=== PATIENT | female | born 1975 | race Two or more races ===

== ENCOUNTER 2017-02-07 16:00 | Emergency (ER) | payer MEDICAID, OTHER ==
[~2017-02-07] VITALS: Ht 167.6 cm; Wt 74.8 kg
[2017-02-07 16:03] VITALS: BP 133/68
== END 2017-02-07 22:15 | disposition left against medical advice (07) ==
LOC: EDBD 16:00 → ER 16:00
DX: R07.9 Chest pain, unspecified (principal); M25.512 Pain in left shoulder; Z53.21 Procedure and treatment not carried out due to patient leaving prior to being seen by health care provider; V73.5XXA Driver of bus injured in collision with car, pick-up truck or van in traffic accident, initial encounter; Y93.89 Activity, other specified; Y92.89 Other specified places as the place of occurrence of the external cause; Y99.8 Other external cause status
CPT/HCPCS: 71020; 93005

== ENCOUNTER 2021-10-20 18:53 | Emergency (ER) | payer MEDICAID ==
[~2021-10-20] VITALS: Ht 165.1 cm; Wt 79.4 kg
[2021-10-20 22:22] LABS: Basophils # (auto) 0 10 ^3/uL (0-0.2); Basophils % (auto) 0.5 % (0.0-2.0); Eosinophils # (auto) 0.1 10 ^3/uL (0-0.8); Eosinophils % (auto) 0.9 % (0.0-7.0); Hematocrit 41.9 % (36.0-46.0); Lymphocytes # (auto) 2.5 10 ^3/uL (0.4-5.4); Lymphocytes % (auto) 30.6 % (10.0-50.0); Mean Corpuscular Hemoglobin 30.1 pg (28.0-32.0); Mean Corpuscular Hgb Conc. 33.3 g/dL (32.0-36.0); Mean Corpuscular Volume 90.3 fL (80.0-100.0); Monocytes # (auto) 0.5 10 ^3/uL (0-1.3); Monocytes % (auto) 6.5 % (0.0-12.0); Neutrophils # (auto) 5.1 10 ^3/uL (1.6-8.6); Neutrophils % (auto) 61.5 % (37.0-80.0); Red Blood Cells 4.64 10^6/uL (4.0-5.20); Red Cell Distribution Width 13.1 % (11.8-14.3); White Blood Cell 8.2 10^3/uL (4.4-10.8)
[2021-10-20 22:39] LABS: Albumin 3.6 g/dL (3.4-5.0); BUN/Creatinine Ratio 11.9; Calcium 9.1 mg/dL (8.5-10.1); Potassium 3.7 mmol/L (3.5-5.1)
[2021-10-20 22:42] LABS: Bilirubin, Total 0.3 mg/dL (0.2-1.0); Total Protein 7.7 g/dL (6.4-8.2)
[2021-10-20 23:40] VITALS: BP 120/78
== END 2021-10-21 00:10 | disposition home or self-care (01) ==
LOC: ER 18:53
DX: R07.9 Chest pain, unspecified (principal); I89.0 Lymphedema, not elsewhere classified; E78.5 Hyperlipidemia, unspecified; F17.210 Nicotine dependence, cigarettes, uncomplicated
CPT/HCPCS: 36415; 71045; 80053; 84484; 84702; 85025; 93005

== ENCOUNTER 2023-04-02 17:34 | Inpatient (IN) | payer MEDICAID ==
[~2023-04-02] VITALS: Ht 165.1 cm; Wt 97.5 kg
[2023-04-02] MEDS ORDERED: ACETAMINOPHEN 325 MG TAB PO ONE (18:00)
[2023-04-02] MEDS: KETOROLAC TROMETH 30 MG/ML 1ML VIAL IV ONE ×2 (18:06→18:28)
[2023-04-02] MEDS: ONDANSETRON HCL 4 MG/2 ML VIAL IV ONE ×2 (18:07→18:28)
[2023-04-02 18:15] LABS: Basophils # (auto) 0 10 ^3/uL (0-0.2); Basophils % (auto) 0.5 % (0.0-2.0); Eosinophils # (auto) 0.1 10 ^3/uL (0-0.8); Eosinophils % (auto) 0.7 % (0.0-7.0); Hemoglobin 15.7 g/dL (12.2-16.2); Lymphocytes # (auto) 2.8 10 ^3/uL (0.4-5.4); Lymphocytes % (auto) 31.5 % (10.0-50.0); Mean Corpuscular Hemoglobin 31.5 pg (28.0-32.0); Mean Corpuscular Volume 92.4 fL (80.0-100.0); Monocytes # (auto) 0.6 10 ^3/uL (0-1.3); Monocytes % (auto) 6.9 % (0.0-12.0); Neutrophils # (auto) 5.3 10 ^3/uL (1.6-8.6); Neutrophils % (auto) 60.4 % (37.0-80.0); Nucleated Red Blood Cells % 0.2 %; Red Blood Cells 4.98 10^6/uL (4.0-5.20); Red Cell Distribution Width 12.8 % (11.8-14.3); White Blood Cell 8.8 10^3/uL (4.4-10.8)
[2023-04-02 18:27] LABS: Alanine Aminotransferase 50 U/L (7-40); Alkaline Phosphatase 151 U/L (46-116); Anion Gap 7 (5-15); Aspartate Aminotransferase 38 U/L (13-40); BUN/Creatinine Ratio 15.5 (10.0-20.0); Bilirubin, Total 0.3 mg/dL (0.2-1.0); Blood Urea Nitrogen 16 mg/dL (9-23); Calcium 9.4 mg/dL (8.7-10.4); Carbon Dioxide 25 mmol/L (20-30); Chloride 104 mmol/L (98-107); Glucose 99 mg/dL (74-106); Potassium 4.2 mmol/L (3.5-5.1); Sodium 136 mmol/L (136-145); Total Protein 7.9 g/dL (5.7-8.2)
[2023-04-02 18:43] LABS: Urine WBC None Seen /hpf (0 - 5)
[2023-04-02 19:00] LABS: Urine Bacteria MANY /hpf (None Seen); Urine Blood Negative /uL (Negative); Urine Clarity Clear (Clear); Urine Hyaline Cast FEW /lpf (0 - 2); Urine Protein, UAD Negative (Negative); Urine Specific Gravity 1.018 (1.001-1.035); Urine Urobilinogen Normal (Negative); Urine pH 6.5 (5.0-8.0)
[2023-04-02 19:03] LABS: Urine Color STRAW (Yellow)
[2023-04-02] MEDS ORDERED: ONDANSETRON HCL 4 MG/2 ML VIAL IV ONE (19:45)
[2023-04-02] MEDS ORDERED: MORPHINE SULFATE 4 MG/ML SYR/VIAL IV ONE (19:45)
[2023-04-02] MEDS ORDERED: SODIUM CHLORIDE 0.9% 1,000 ML IV ONE (21:45)
[2023-04-02] MEDS ORDERED: IOHEXOL 300 MG/ML 100ML BOTTLE IJ ONE (22:29)
[2023-04-02] MEDS ORDERED: PIPERACILLIN-TAZOB 3.375GM 100 ML IV ONE (23:00)
[2023-04-02] MEDS ORDERED: ONDANSETRON HCL 4 MG/2 ML VIAL IV PRN (23:15)
[2023-04-02] MEDS ORDERED: HYDROcodone-ACET 5/325MG TAB PO PRN (23:30)
[2023-04-03] VITALS (8 sets, daily range): BP systolic 94–119; BP diastolic 47–74; PULSE 71–80; RESP 16–18; TEMP 97.8–98.8; O2SAT 94–98
[2023-04-03 00:11] LABS: INR 0.97 (0.9-1.15); Partial Thromboplastin Time 30.2 SEC (24.5-34.5); Prothrombin Time 10.2 sec (9.3-11.8)
[2023-04-03] MEDS: D5W/SOD CHL 0.45% 1,000 ML IV SCH ×3 (00:33→19:15)
[2023-04-03] MEDS: MORPHINE SULFATE INJ 2 MG/ml SYRG IV PRN ×2 (02:51→15:03)
[2023-04-03] MEDS: PIPERACILLIN-TAZOB 3.375GM 100 ML IV SCH ×3 (05:35→22:06)
[2023-04-03 07:38] LABS: Alanine Aminotransferase 103 U/L (7-40); Alkaline Phosphatase 134 U/L (46-116); Anion Gap 8 (5-15); Aspartate Aminotransferase 189 U/L (13-40); BUN/Creatinine Ratio 13.6 (10.0-20.0); Blood Urea Nitrogen 9 mg/dL (9-23); Calcium 8.7 mg/dL (8.5-10.1); Carbon Dioxide 23 mmol/L (20-30); Chloride 107 mmol/L (98-107); Glucose 92 mg/dL (74-106); Potassium 3.6 mmol/L (3.5-5.1); Sodium 138 mmol/L (136-145)
[2023-04-03 07:40] LABS: Albumin 3.9 g/dL (3.2-4.8); Bilirubin, Total 0.5 mg/dL (0.2-1.0); Total Protein 6.3 g/dL (5.7-8.2)
[2023-04-03] MEDS: ENOXAPARIN SOD 40 MG/0.4 ML SYRINGE SC SCH (12:09)
[2023-04-03] MEDS: ACETAMINOPHEN 325 MG TAB PO PRN (20:16)
[2023-04-04] VITALS (7 sets, daily range): BP systolic 99–128; BP diastolic 52–85; PULSE 70–81; RESP 16–18; TEMP 97.6–98.5; O2SAT 95–97
[2023-04-04] MEDS: D5W/SOD CHL 0.45% 1,000 ML IV SCH ×2 (04:31→15:45)
[2023-04-04] MEDS: PIPERACILLIN-TAZOB 3.375GM 100 ML IV SCH ×3 (05:17→21:43)
[2023-04-04 06:41] LABS: Basophils # (auto) 0 10 ^3/uL (0-0.2); Basophils % (auto) 0.4 % (0.0-2.0); Eosinophils # (auto) 0.1 10 ^3/uL (0-0.8); Hematocrit 41.3 % (36.0-46.0); Lymphocytes % (auto) 37.7 % (10.0-50.0); Mean Corpuscular Hemoglobin 31.3 pg (28.0-32.0); Mean Corpuscular Hgb Conc. 33.8 g/dL (32.0-36.0); Mean Corpuscular Volume 92.7 fL (80.0-100.0); Monocytes # (auto) 0.5 10 ^3/uL (0-1.3); Monocytes % (auto) 8.9 % (0.0-12.0); Neutrophils # (auto) 2.7 10 ^3/uL (1.6-8.6); Nucleated Red Blood Cells % 0.1 %; Red Blood Cells 4.46 10^6/uL (4.0-5.20); Red Cell Distribution Width 12.7 % (11.8-14.3); White Blood Cell 5.3 10^3/uL (4.4-10.8)
[2023-04-04] MEDS: ENOXAPARIN SOD 40 MG/0.4 ML SYRINGE SC SCH (08:56)
[2023-04-04] MEDS: MORPHINE SULFATE INJ 2 MG/ml SYRG IV PRN ×2 (08:57→19:51)
[2023-04-04 09:00] LABS: Alanine Aminotransferase 169 U/L (7-40); Alkaline Phosphatase 190 U/L (46-116); Anion Gap 6 (5-15); BUN/Creatinine Ratio 8.2 (10.0-20.0); Blood Urea Nitrogen 6 mg/dL (9-23); Calcium 8.8 mg/dL (8.7-10.4); Carbon Dioxide 23 mmol/L (20-30); Chloride 108 mmol/L (98-107); Glucose 83 mg/dL (74-106); Lipase 31 U/L (12-53); Potassium 3.8 mmol/L (3.5-5.1); Sodium 137 mmol/L (136-145)
[2023-04-04 09:02] LABS: Aspartate Aminotransferase 165 U/L (13-40); Bilirubin, Total 0.7 mg/dL (0.2-1.0)
[2023-04-04 09:03] LABS: Total Protein 6.6 g/dL (5.7-8.2)
[2023-04-04 11:27] LABS: Triglycerides 108 mg/dL (< 150)
[2023-04-04 11:28] LABS: LDL Cholesterol 121 mg/dL (< 100)
[2023-04-04 11:29] LABS: HDL Cholesterol 54 mg/dL (40-59)
[2023-04-04 11:30] LABS: Cholesterol 179 mg/dL (< 200)
[2023-04-05] MEDS: D5W/SOD CHL 0.45% 1,000 ML IV SCH (02:52)
[2023-04-05 05:00] VITALS: BP 95/71; PULSE 76; RESP 16; TEMP 98.5; O2SAT 96
[2023-04-05] MEDS: PIPERACILLIN-TAZOB 3.375GM 100 ML IV SCH ×3 (05:49→21:48)
[2023-04-05 07:06] LABS: Albumin 4.2 g/dL (3.2-4.8); Bilirubin, Direct 0.1 mg/dL (<0.3); Bilirubin, Total 0.3 mg/dL (0.2-1.0); Total Protein 6.9 g/dL (5.7-8.2)
[2023-04-05 08:00] VITALS: PULSE 81; RESP 18
[2023-04-05 09:38] LABS: Hepatitis B Surface Antigen Negative (Negative)
[2023-04-05 09:52] VITALS: BP 100/68; PULSE 81; RESP 16; TEMP 98.1; O2SAT 95
[2023-04-05 09:59] LABS: Hepatitis C Antibody Negative (Negative)
[2023-04-05] MEDS: ENOXAPARIN SOD 40 MG/0.4 ML SYRINGE SC SCH (11:27)
[2023-04-05] MEDS: ACETAMINOPHEN 325 MG TAB PO PRN (12:23)
[2023-04-05 12:36] LABS: INR 0.94 (0.9-1.15); Prothrombin Time 9.9 sec (9.3-11.8)
[2023-04-05 13:07] VITALS: BP 111/69; PULSE 80; RESP 19; TEMP 98.5; O2SAT 95
[2023-04-05] MEDS: MORPHINE SULFATE INJ 2 MG/ml SYRG IV PRN (21:48)
[2023-04-05 22:00] VITALS: BP 132/94; PULSE 90; RESP 16; TEMP 97.7; O2SAT 95
[2023-04-06] VITALS (8 sets, daily range): BP systolic 101–120; BP diastolic 46–80; PULSE 65–97; RESP 16–20; TEMP 97.2–98; O2SAT 90–100
[2023-04-06] MEDS: MORPHINE SULFATE INJ 2 MG/ml SYRG IV PRN (04:34)
[2023-04-06] MEDS: PIPERACILLIN-TAZOB 3.375GM 100 ML IV SCH ×3 (05:10→23:37)
[2023-04-06 07:48] LABS: Albumin 4.2 g/dL (3.2-4.8); Bilirubin, Direct 0.1 mg/dL (<0.3); Bilirubin, Total 0.4 mg/dL (0.2-1.0); Total Protein 7.1 g/dL (5.7-8.2)
[2023-04-06] MEDS ORDERED: BUPIVACAINE 0.5% P/F INJ 10 ML VIAL ONE ×2 (08:23→08:45)
[2023-04-06] MEDS ORDERED: LIDOCAINE W/ EPINEPHRINE 2% INJ 20ML VIAL ONE (08:24)
[2023-04-06] MEDS ORDERED: fentaNYL CITRATE 100 MCG/2 ML VL ONE (08:57)
[2023-04-06] MEDS ORDERED: LIDOCAINE HCL 100 MG/5ML (2%) SYRG INJ IV ONE (08:57)
[2023-04-06] MEDS ORDERED: PROPOFOL 10 MG/ML 20 ML IV ONE (08:57)
[2023-04-06] MEDS ORDERED: KETOROLAC TROMETH 30 MG/ML 1ML VIAL ONE (08:57)
[2023-04-06] MEDS ORDERED: DexAMETHasone SOD PHOS 10MG/1ML VIAL INJ ONE (08:57)
[2023-04-06] MEDS ORDERED: ONDANSETRON HCL 4 MG/2 ML VIAL ONE (08:57)
[2023-04-06] MEDS ORDERED: MIDAZOLAM HCL 2MG/2ML 2ml VIAL (1mg/ml) ONE (08:57)
[2023-04-06] MEDS ORDERED: GLYCOPYRROLATE 0.2 MG/ML 1ML VIAL ONE (08:57)
[2023-04-06] MEDS ORDERED: HYDROmorphone HCL 2 MG/ML VL/or syr ONE (08:57)
[2023-04-06] MEDS ORDERED: ROCURONIUM 10MG/ML 10ML VIAL IV ONE (09:25)
[2023-04-06] MEDS ORDERED: ePHEDrine SULFATE 50 MG/ML AMP ONE (09:25)
[2023-04-06] MEDS ORDERED: SUGAMMADEX 200mg/2ml Vial (100MG/ML) IV ONE ×2 (09:25→09:59)
[2023-04-06] MEDS: ENOXAPARIN SOD 40 MG/0.4 ML SYRINGE SC SCH (10:00)
[2023-04-06] MEDS ORDERED: HYDROmorphone HCL 2 MG/ML VL/or syr IV PRN (10:30)
[2023-04-06] MEDS ORDERED: ONDANSETRON HCL 4 MG/2 ML VIAL IV PRN (10:30)
[2023-04-06] MEDS ORDERED: FAMOTIDINE (10MG/ML) 2ML VL IV ONE ×2 (10:52→11:00)
[2023-04-07 05:00] VITALS: BP 112/70; PULSE 86; RESP 18; TEMP 98.3; O2SAT 100
[2023-04-07] MEDS: MORPHINE SULFATE INJ 2 MG/ml SYRG IV PRN (05:01)
[2023-04-07] MEDS: PIPERACILLIN-TAZOB 3.375GM 100 ML IV SCH ×2 (07:02→14:00)
[2023-04-07 07:07] LABS: Alanine Aminotransferase 100 U/L (7-40); Albumin 4.1 g/dL (3.2-4.8); Alkaline Phosphatase 176 U/L (46-116); Anion Gap 7 (5-15); Aspartate Aminotransferase 40 U/L (13-40); BUN/Creatinine Ratio 10.4 (10.0-20.0); Blood Urea Nitrogen 8 mg/dL (9-23); Calcium 9.2 mg/dL (8.5-10.1); Carbon Dioxide 26 mmol/L (20-30); Chloride 105 mmol/L (98-107); Glucose 123 mg/dL (74-106); Potassium 3.9 mmol/L (3.5-5.1); Sodium 138 mmol/L (136-145)
[2023-04-07 07:08] LABS: Bilirubin, Total 0.3 mg/dL (0.2-1.0); Total Protein 6.6 g/dL (5.7-8.2)
[2023-04-07 08:00] VITALS: PULSE 91; RESP 20; O2SAT 96
[2023-04-07 08:51] VITALS: BP 137/85; PULSE 91; RESP 20; TEMP 97.9; O2SAT 96
[2023-04-07] MEDS: ENOXAPARIN SOD 40 MG/0.4 ML SYRINGE SC SCH (10:00)
[2023-04-07 13:00] VITALS: BP 124/79; PULSE 83; RESP 17; TEMP 97.9; O2SAT 100
[2023-04-07] MEDS ORDERED: SENN-105 PO (14:12)
[2023-04-07] MEDS ORDERED: IBUP-1454 PO (14:12)
[2023-04-07] MEDS ORDERED: PANT40T PO (14:12)
[2023-04-07 14:57] VITALS: TEMP 36.6
== END 2023-04-07 16:00 | disposition home or self-care (01) | DRG 263 ==
LOC: ER 17:34 → OVERFLOW 23:25 → CENTRAL 04-03 03:12 → TELE-EAST 04-03 18:27 → CENTRAL 04-03 20:11
PROVIDERS: ADMIT Hospitalist; ATTEND Hospitalist
PROC: 0FT44ZZ Resection of Gallbladder, Percutaneous Endoscopic Approach (ICD-10-PCS; principal; 2023-04-06 09:03)
DX: K80.00 Calculus of gallbladder with acute cholecystitis without obstruction (principal); F17.210 Nicotine dependence, cigarettes, uncomplicated; N39.0 Urinary tract infection, site not specified; K82.8 Other specified diseases of gallbladder; Z83.3 Family history of diabetes mellitus; Z82.49 Family history of ischemic heart disease and other diseases of the circulatory system; Z80.9 Family history of malignant neoplasm, unspecified; Z83.42 Family history of familial hypercholesterolemia
CPT/HCPCS: 36415; 71045; 74177; 74181; 76705; 80053; 80061; 80076; 81001; 83690; 84702; 85025; 85610; 85730; 86803; 86850; 86900; 86901; 87340; 96361; 96374; 96375; 96376; G0378; J1100; J1885; J2250; J2405; J2543; J2704; J3490

== ENCOUNTER 2024-10-12 17:07 | Emergency (ER) | payer MEDICAID ==
[~2024-10-12] VITALS: Ht 165.1 cm; Wt 79.9 kg
[~2024-10-12 17:07] MED LIST: IBUP-1454 PO; PANT40T PO; SENN-105 PO
[2024-10-12 18:36] VITALS: TEMP 97.8; O2SAT 96
[2024-10-12] MEDS: MORPHINE SULFATE 4 MG/ML SYR/VIAL IM ONE (18:36)
--- NOTE | 2024-10-12 18:38 | ED.PDOC ---
General HPI Comments 54 y/o F, presents to the ED for CC of flank pain. Patient states, she has been experiencing right flank pain that radiates to her RUQ and back xdays. Patient reports, pain to worsen with movement and while sitting down. Patient describes, pain to be sharp and stabbing like in nature. Patient denies fever, chills, sweats, hematuria, or dysuria. No other symptoms or modifying factors present at this time. Chief Complaint: Flank Pain Time Seen by MD: 18:15 Primary Care Provider: UNKNOWN Reviewed notes: Nurses Notes, Medications, Allergies Allergies: Coded Allergies: Hydrocodone (Verified Allergy, Unknown, 04/06/23) PER PT "A LITTLE ITCHY" Home Meds Active Scripts Senna (Senna) 8.6 Mg Tab, 8.6 MG PO QPM PRN, #20 TAB Prov:SHANE VAZQUEZ MD 04/07/23 Pantoprazole Sodium Sesquihydr (Pantoprazole Sodium) 40 Mg Tab, 40 MG PO DAILY, #30 TAB Prov:SHANE VAZQUEZ MD 04/07/23 Ibuprofen (Ibuprofen) 600 Mg Tab, 1 TAB PO Q6HPRN PRN, #20 TAB Prov:SHANE VAZQUEZ MD 04/07/23 Information Source: Patient Mode of Arrival: Ambulatory Severity: Moderate Timing: Days Duration: Since onset Prehospital treatment: None Onset: Spontaneous Symptoms: None History of: None Location: (R) Flank Modifying factors: None associated signs and symptoms: Abdominal Pain, Back Pain Past Medical History PAST MEDICAL HISTORY: High Lipids Surgical History: Denies all surgeries 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: 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 WORKER Hx Family History Family History: Reviewed,noncontributory to illness, Family hx of heart ángel Social History Smoker: Cigarettes Alcohol: Denies ETOH Use Drugs: Denies Drug Use Lives In: Home Constitutional: denies: chills, diaphoresis, fatigue, fever, malaise, sweats, weakness, others EENTM: denies: blurred vision, double vision, ear bleeding, ear discharge, ear drainage, ear pain, ear ringing, eye pain, eye redness, hearing loss, mouth pain, mouth swelling, nasal discharge, nose bleeding, nose congestion, nose pain, photophobia, tearing, throat pain, throat swelling, voice changes, others Respiratory: denies: cough, hemoptysis, orthopnea, SOB at rest, shortness of breath, SOB with excertion, stridor, wheezing, others Cardiovascular: denies: chest pain, dizzy spells, diaphoresis, Dyspnea on exertion, edema, irregular heart beat, left arm pain, lightheadedness, palpitations, PND, syncope, others Gastrointestinal: reports: abdominal pain; denies: abdomen distended, blood streaked bowels, constipated, diarrhea, dysphagia, difficulty swallowing, hematemesis, melena, nausea, poor appetite, poor fluid intake, rectal bleeding, rectal pain, vomiting, others Genitourinary: reports: flank pain; denies: abnormal vagina bleeding, burning, dyspareunia, dysuria, frequency, hematuria, incontinence, pain, , vagina discharge, urgency, others Neurological: denies: dizziness, fainting, headache, left sided numbness, left sided weakness, numbness, paresthesia, pre-existing deficit, right sided numbness, right sided weakness, seizure, speech problems, tingling, tremors, weakness, others Musculoskeletal: reports: back pain; denies: gout, joint pain, joint swelling, muscle pain, muscle stiffness, neck pain, others Integumetry: denies: bruises, change in color, change in hair/nails, dryness, laceration, lesions, lumps, rash, wounds, others Allergic/Immunocompromised: denies: Difficulty Healing, Frequent Infections, Hives, Itching, others Hematologic/Lymphatic: denies: anemia, blood clots, easy bleeding, easy bruising, swollen glands, others Endocrine: denies: excessive hunger, excessive sweating, excessive thirst, excessive urination, flushing, intolerance to cold, intolerance to heat, unexplained weight gain, unexplained weight loss, others Psychiatric: denies: anxiety, bipolar disorder, depression, hopeless, panic disorder, schizophrenia, sleepless, suicidal, others All Other Systems: Reviewed and Negative Physical Exam General Appearance: No Apparent Distress, Normal HEENT: Normal ENT Inspection, Pharynx Normal Neck: Full Range of Motion, Non-Tender, Normal, Normal Inspection Respiratory: Chest Non-Tender, Lungs Clear, No Accessory Muscle Use, No Respiratory Distress, Normal Breath Sounds Cardiovascular: No Edema, No Murmur, No Gallop, Normal Peripheral Pulses, Regular Rate/Rhythm Breast Exam: Deferred Gastrointestinal: No Organomegaly, No Pulsatile Mass, Normal Bowel Sounds, RUQ, Tenderness Genitalia: Deferred Pelvic: Deferred Rectal: Deferred Extremities: No calf tenderness, Normal capillary refill, Normal inspection, Normal range of motion, Non-tender, No pedal edema Musculoskeletal : Location: Right Extremity Location: Back Apperance: Tenderness: Moderate Neurologic: Alert, beauty therapist II-XII nml as Tested, No Motor Deficits, Normal Affect, Normal Mood, No Sensory Deficits Cerebellar Function: Normal Reflexes: Normal Skin: Dry, Normal Color, Warm Lymphatic: No Adenopathy Was a procedure done? Was a procedure done?: No Differential Diagnosis Kidney stone (Female): Cholelithiasis, Pancreatitis, Pyelonephritis, Urinary obstruction Kidney stone (Male): N/A Penile/Scrotal: N/A Urinary Problem (Male): N/A Urinary Problem (Female): UTI, Vaginitis X-Ray, Labs, Meds, VS Vital Signs Date Time Temp Pulse Resp B/P (MAP) Pulse Ox O2 Delivery O2 Flow Rate FiO2 10/12/24 19:46 105 16 147/93 10/12/24 18:36 97.8 106 18 147/111 (123) 96 97.8 10/12/24 18:36 106 18 147/111 10/12/24 18:36 106 18 96 Room Air 10/12/24 17:38 98.4 107 18 150/101 (117) 96 98.4 Lab Test 10/12/24 18:48 10/12/24 09:37 Range/Units White Blood Count 8.2 4.4-10.8 10^3/uL Red Blood Count 4.90 4.0-5.20 10^6/uL Hemoglobin 15.6 12.2-16.2 g/dL Hematocrit 45.0 36.0-46.0 % Mean Corpuscular Volume 91.7 80.0-100.0 fL Mean Corpuscular Hemoglobin 31.8 28.0-32.0 pg Mean Corpuscular Hemoglobin Concent 34.7 32.0-36.0 g/dL Red Cell Distribution Width 12.8 11.8-14.3 % Platelet Count 328 140-450 10^3/uL Mean Platelet Volume 7.3 6.9-10.8 fL Neutrophils (%) (Auto) 63.0 37.0-80.0 % Lymphocytes (%) (Auto) 29.5 10.0-50.0 % Monocytes (%) (Auto) 6.8 0.0-12.0 % Eosinophils (%) (Auto) 0.3 0.0-7.0 % Basophils (%) (Auto) 0.4 0.0-2.0 % Neutrophils # (Auto) 5.2 1.6-8.6 10 ^3/uL Lymphocytes # (Auto) 2.4 0.4-5.4 10 ^3/uL Monocytes # (Auto) 0.6 0-1.3 10 ^3/uL Eosinophils # (Auto) 0 0-0.8 10 ^3/uL Basophils # (Auto) 0 0-0.2 10 ^3/uL Nucleated Red Blood Cells 0.1 % Sodium Level 137 136-145 mmol/L Potassium Level 4.3 3.5-5.1 mmol/L Chloride Level 101 98-107 mmol/L Carbon Dioxide Level 29 20-31 mmol/L Anion Gap 7 5-15 Blood Urea Nitrogen 13 9-23 mg/dL Creatinine 0.91 0.550-1.02 mg/dL Glomerular Filtration Rate Calc 77 >90 mL/min BUN/Creatinine Ratio 14.3 10.0-20.0 Serum Glucose 110 H 74-106 mg/dL Calcium Level 11.2 H 8.7-10.4 mg/dL Total Bilirubin 0.3 0.2-1.0 mg/dL Aspartate Amino Transferase (AST) 51 H 13-40 U/L Alanine Aminotransferase (ALT) 69 H 7-40 U/L Alkaline Phosphatase 222 H 46-116 U/L Total Protein 7.8 5.7-8.2 g/dL Albumin 4.8 3.2-4.8 g/dL Lipase 30 12-53 U/L Urine Color Colorless Yellow Urine Clarity Turbid H Clear Urine pH 6.5 5.0-9.0 Urine Specific [place] 1.020 1.001-1.035 Urine Protein Negative Negative Urine Ketones Negative Negative Urine Blood Negative Negative /uL Urine Nitrite 2+ H Negative Urine Bilirubin Negative Negative Urine Urobilinogen Normal Negative mg/dL Urine Leukocyte Esterase Negative Negative /uL Urine RBC 3 0 - 4 /hpf Urine Microscopic WBC 7 H 0-5 /HPF Urine Squamous Epithelial Cells Few <5 /hpf Urine Bacteria Few H None Seen /hpf Urine Mucus Few None Seen Urine Glucose Normal Normal mg/dL Current Medications Medications (Trade) Dose Ordered Sig/Chaz Route Start Time Stop Time Status Last Admin Morphine Sulfate 4 mg ONCE ONCE IM 10/12/24 18:30 10/12/24 18:31 DC 10/12/24 18:36 Time of 1ST Reevaluation: 18:45 Reevaluation 1ST: Unchanged Patient Education/Counseling: Diagnosis, Treatment Family Education/Counseling: No Family Present SEPSIS Sepsis Screen Date sepsis recognized/suspect: Oct 12, 2024 Time Sepsis recognized/suspect: 1728 Recent Procedure: No On Antibiotic Therapy: No Respiratory Rate >20: No Heart Rate >90: No Temp<36 C (96.8 F) or >38.3 C: No SBP <90 or MAP <65 mmHG: No New Acute Mental Status Change: No Is the patient on CPAP, BIPAP,: No Physician Orders Ct Ab Pel Wo Con-No Oral Or Iv (10/12/24 18:25) Vital Signs Date Time Temp Pulse Resp B/P (MAP) Pulse Ox O2 Delivery O2 Flow Rate FiO2 10/12/24 19:46 105 16 147/93 10/12/24 18:36 97.8 106 18 147/111 (123) 96 97.8 10/12/24 18:36 106 18 147/111 10/12/24 18:36 106 18 96 Room Air 10/12/24 17:38 98.4 107 18 150/101 (117) 96 98.4 Laboratory Tests Test 10/12/24 18:48 White Blood Count 8.2 10^3/uL (4.4-10.8) Medications Medications Dose Ordered Sig/Chaz Route Start Time Stop Time Status Last Admin Dose Admin Morphine Sulfate 4 mg ONCE ONCE IM 10/12/24 18:30 10/12/24 18:31 DC 10/12/24 18:36 Departure 1 Departure Time of Disposition: 20:10 Impression: Primary Impression: UTI (urinary tract infection) Qualified Codes: N30.01 - Acute cystitis with hematuria Disposition: HOME / SELF CARE / HOMELESS Condition: Fair e-Prescriptions Ciprofloxacin Hcl (Cipro) 500 Mg Tab 1 TAB PO BID for 7 Days, #14 TAB Prov: LUZ VANEGAS 10/12/24 Discharged With: Self Critical Care Note Critical Care Time?: No Stability Stability form required: No Heart Score Heart Score: Heart Score Response (Comments) Value History N/A 0 EKG N/A 0 Age N/A 0 Risk Factors N/A 0 Troponin N/A 0 Total 0 I personally scribed for LUZ VANEGAS ([email or web address]) on 10/12/24 at 18:38. Electronically submitted by Sheryl Cook [email or web address]). LUZ VANEGAS Oct 12, 2024 18:38
[2024-10-12 19:11] LABS: Hematocrit 45.0 % (36.0-46.0); Hemoglobin 15.6 g/dL (12.2-16.2); Mean Corpuscular Hemoglobin 31.8 pg (28.0-32.0); Mean Corpuscular Volume 91.7 fL (80.0-100.0); Nucleated Red Blood Cells % 0.1 %
--- NOTE | 2024-10-12 19:20 | DVH ---
Exam: CT CT AB PEL WO CON-NO ORAL OR IV History: ABD PAIN Comparison Study: None TECHNIQUE: Multidetector CT of the abdomen and pelvis was performed from lung bases to pubic symphysi s. Imaging was performed without IV contrast. Axial, coronal, and sagittal multiplanar reformats were obtained from the axial data set by the technologist. RADIATION DOSE: DLP 624.21 mGy.cm; CTDI vol 12.53 mGy. Findings: Lungs: The lung bases are clear. Heart: No cardiomegaly or pericardial effusion. Liver: Unremarkable. Gallbladder: Cholecystectomy. Spleen: Unremarkable Pancreas: Unremarkable Adrenals: Unremarkable Kidneys: Unremarkable GI tract: More fecal burden. Unremarkable : Unremarkable. Vasculature: Unremarkable Lymphadenopathy: Absent Peritoneum: No ascites Musculoskeletal: Unremarkable Soft tissues: Unremarkable Impression: 1. No acute abdominopelvic abnormalities. 2. Moderate fecal burden.
[2024-10-12 19:30] LABS: Anion Gap 7 (5-15); BUN/Creatinine Ratio 14.3 (10.0-20.0); Blood Urea Nitrogen 13 mg/dL (9-23); Carbon Dioxide 29 mmol/L (20-31); Chloride 101 mmol/L (98-107); Lipase 30 U/L (12-53); Potassium 4.3 mmol/L (3.5-5.1); Sodium 137 mmol/L (136-145); Total Protein 7.8 g/dL (5.7-8.2)
[2024-10-12 19:31] LABS: Bilirubin, Total 0.3 mg/dL (0.2-1.0)
[2024-10-12 19:32] LABS: Urine Protein, UAD Negative (Negative)
[2024-10-12 19:33] LABS: Alanine Aminotransferase 69 U/L (7-40); Albumin 4.8 g/dL (3.2-4.8); Alkaline Phosphatase 222 U/L (46-116); Calcium 11.2 mg/dL (8.7-10.4); Glucose 110 mg/dL (74-106)
[2024-10-12 19:46] VITALS: BP 147/93; PULSE 105; RESP 16
[2024-10-12] MEDS ORDERED: CIPR-173 PO (20:11)
[2024-10-12] MEDS: cefTRIAXone SOD 1,000 MG VL IM ONE (20:56)
[2024-10-12] MEDS ORDERED: TRAM50TA2 PO ×2 (21:07→21:12)
== END 2024-10-12 21:02 | disposition home or self-care (01) ==
LOC: ER 17:07
DX: N39.0 Urinary tract infection, site not specified (principal); F17.210 Nicotine dependence, cigarettes, uncomplicated; E78.5 Hyperlipidemia, unspecified; Z88.5 Allergy status to narcotic agent; Z79.899 Other long term (current) drug therapy
CPT/HCPCS: 36415; 74176; 80053; 81001; 83690; 85025; 96372; 99285; J0696; J2270

== ENCOUNTER 2025-01-01 14:24 | Inpatient (IN) | payer MEDICAID ==
[~2025-01-01] VITALS: Ht 165.1 cm; Wt 85.0 kg
[~2025-01-01 14:24] MED LIST changes: +CIPR-173 PO; +TRAM50TA2 PO
[2025-01-01 15:34] LABS: Hematocrit 45.0 % (36.0-46.0); Hemoglobin 15.6 g/dL (12.2-16.2); Mean Corpuscular Hemoglobin 31.6 pg (28.0-32.0); Mean Corpuscular Volume 91.2 fL (80.0-100.0); Nucleated Red Blood Cells % 0.0 %
[2025-01-01 15:46] LABS: Urine Protein, UAD Negative (Negative)
[2025-01-01 15:49] LABS: Albumin 4.1 g/dL (3.2-4.8); Anion Gap 7 (5-15); BUN/Creatinine Ratio 11.9 (10.0-20.0); Blood Urea Nitrogen 10 mg/dL (9-23); Carbon Dioxide 27 mmol/L (20-31); Chloride 106 mmol/L (98-107); Glucose 91 mg/dL (74-106); Potassium 4.0 mmol/L (3.5-5.1); Sodium 140 mmol/L (136-145); Total Protein 6.7 g/dL (5.7-8.2)
[2025-01-01 15:50] LABS: Alanine Aminotransferase 68 U/L (7-40); Alkaline Phosphatase 143 U/L (46-116); Bilirubin, Total < 0.2 mg/dL (0.2-1.0); Calcium 8.6 mg/dL (8.7-10.4)
--- NOTE | 2025-01-01 17:15 | ED.PDOC ---
History of Present Illness HPI Comments 49F with hx of UTI, cholcyestectomy was sent to the ER by kassy PCP for the evaluation of R flank pain. Patient has been experiencing right sided flank pain for the past 3 months, non radiationg, associated with low grade fever and chills, and hematuria, she was prescibed macrobid by PCP which didn't improve he r pain, intensity 10/10, denies urinary frequency, burning or dysuria, she had a renal U/S completed last which shows R hydronephrosis and obstructive uropathy. PMH/PSH: UTI, cholcyestectomy Social Hx: Denies smoking, drinking, drug use, lives with family Patient seen and examined, CT A/P pending, blood and urine culture ordered ----> IV ceftriaxone started Chief Complaint: Flank Pain Time Seen by MD: 14:25 Primary Care Provider: UNKNOWN Allergies: Coded Allergies: Hydrocodone (Verified Allergy, Unknown, 04/06/23) PER PT "A LITTLE ITCHY" Home Meds Active Scripts Tramadol Hcl (Tramadol Hcl) 50 Mg Tab, 50 MG PO BID PRN, #20 TAB Prov:LUZ VANEGAS 10/12/24 Ciprofloxacin Hcl (Cipro) 500 Mg Tab, 1 TAB PO BID for 7 Days, #14 TAB Prov:LUZ VANEGAS 10/12/24 Senna (Senna) 8.6 Mg Tab, 8.6 MG PO QPM PRN, #20 TAB Prov:SHANE VAZQUEZ MD 04/07/23 Pantoprazole Sodium Sesquihydr (Pantoprazole Sodium) 40 Mg Tab, 40 MG PO DAILY, #30 TAB Prov:SHANE VAZQUEZ MD 04/07/23 Ibuprofen (Ibuprofen) 600 Mg Tab, 1 TAB PO Q6HPRN PRN, #20 TAB Prov:SHANE VAZQUEZ MD 04/07/23 Mode of Arrival: Ambulatory Past Medical History PAST MEDICAL HISTORY: High Lipids, UTI'S Surgical History: Cholecystectomy 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 MANAGER History: 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 all 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 MANAGER Hx Family History Family History: Reviewed,noncontributory to illness, Family hx of heart ángel Social History Smoker: Cigarettes Alcohol: Denies ETOH Use Drugs: Denies Drug Use Lives In: Home Constitutional: reports: chills, fatigue, fever, sweats, weakness EENTM: denies: blurred vision, double vision, ear bleeding, ear discharge, ear drainage, ear pain, ear ringing, eye pain, eye redness, hearing loss, mouth pain, mouth swelling, nasal discharge, nose bleeding, nose congestion, nose pain, photophobia, tearing, throat pain, throat swelling, voice changes, others Respiratory: denies: cough, hemoptysis, orthopnea, SOB at rest, shortness of breath, SOB with excertion, stridor, wheezing, others Cardiovascular: denies: chest pain, dizzy spells, diaphoresis, Dyspnea on exertion, edema, irregular heart beat, left arm pain, lightheadedness, palpitations, PND, syncope, others Gastrointestinal: reports: abdominal pain Genitourinary: reports: flank pain Neurological: denies: dizziness, fainting, headache, left sided numbness, left sided weakness, numbness, paresthesia, pre-existing deficit, right sided numbness, right sided weakness, seizure, speech problems, tingling, tremors, weakness, others Musculoskeletal: denies: back pain, gout, joint pain, joint swelling, muscle pain, muscle stiffness, neck pain, others Integumetry: denies: bruises, change in color, change in hair/nails, dryness, laceration, lesions, lumps, rash, wounds, others Allergic/Immunocompromised: denies: Difficulty Healing, Frequent Infections, Hives, Itching, others Hematologic/Lymphatic: denies: anemia, blood clots, easy bleeding, easy bruising, swollen glands, others Endocrine: denies: excessive hunger, excessive sweating, excessive thirst, excessive urination, flushing, intolerance to cold, intolerance to heat, unexplained weight gain, unexplained weight loss, others Psychiatric: denies: anxiety, bipolar disorder, depression, hopeless, panic disorder, schizophrenia, sleepless, suicidal, others Physical Exam General Appearance: Moderate Distress, Other (can't sit) HEENT: Normal ENT Inspection, Pharynx Normal, TMs Normal Neck: Full Range of Motion, Non-Tender, Normal, Normal Inspection Respiratory: Chest Non-Tender, Lungs Clear, No Accessory Muscle Use, No Respiratory Distress, Normal Breath Sounds Cardiovascular: No Edema, No JVD, No Murmur, No Gallop, Normal Peripheral Pulses, Regular Rate/Rhythm Breast Exam: Deferred Gastrointestinal: No Organomegaly, Non Tender, No Pulsatile Mass, Normal Bowel Sounds, Soft Genitalia: Deferred Pelvic: Deferred Rectal: None Extremities: No calf tenderness, Normal capillary refill, Normal inspection, Normal range of motion, Non-tender, No pedal edema Neurologic: Alert, director of child welfare services II-XII nml as Tested, No Motor Deficits, Normal Affect, Normal Mood, No Sensory Deficits Cerebellar Function: Normal Reflexes: Normal Skin: Dry, Normal Color, Warm Lymphatic: No Adenopathy Was a procedure done? Was a procedure done?: No Differential Dx Considerations may include: UTI/ureteral stone/muscle spasm X-Ray, Labs, Meds, VS Vital Signs Date Time Temp Pulse Resp B/P (MAP) Pulse Ox O2 Delivery O2 Flow Rate FiO2 01/01/25 14:25 97.1 95 19 147/88 97 97.1 Lab Test 01/01/25 15:05 01/01/25 14:58 Range/Units White Blood Count 7.2 4.4-10.8 10^3/uL Red Blood Count 4.94 4.0-5.20 10^6/uL Hemoglobin 15.6 12.2-16.2 g/dL Hematocrit 45.0 36.0-46.0 % Mean Corpuscular Volume 91.2 80.0-100.0 fL Mean Corpuscular Hemoglobin 31.6 28.0-32.0 pg Mean Corpuscular Hemoglobin Concent 34.7 32.0-36.0 g/dL Red Cell Distribution Width 13.2 11.8-14.3 % Platelet Count 291 140-450 10^3/uL Mean Platelet Volume 7.3 6.9-10.8 fL Neutrophils (%) (Auto) 60.6 37.0-80.0 % Lymphocytes (%) (Auto) 31.9 10.0-50.0 % Monocytes (%) (Auto) 6.0 0.0-12.0 % Eosinophils (%) (Auto) 1.1 0.0-7.0 % Basophils (%) (Auto) 0.4 0.0-2.0 % Neutrophils # (Auto) 4.3 1.6-8.6 10 ^3/uL Lymphocytes # (Auto) 2.3 0.4-5.4 10 ^3/uL Monocytes # (Auto) 0.4 0-1.3 10 ^3/uL Eosinophils # (Auto) 0.1 0-0.8 10 ^3/uL Basophils # (Auto) 0 0-0.2 10 ^3/uL Nucleated Red Blood Cells 0.0 % Sodium Level 140 136-145 mmol/L Potassium Level 4.0 3.5-5.1 mmol/L Chloride Level 106 98-107 mmol/L Carbon Dioxide Level 27 20-31 mmol/L Anion Gap 7 5-15 Blood Urea Nitrogen 10 9-23 mg/dL Creatinine 0.84 0.550-1.02 mg/dL Glomerular Filtration Rate Calc 85 >90 mL/min BUN/Creatinine Ratio 11.9 10.0-20.0 Serum Glucose 91 74-106 mg/dL Calcium Level 8.6 L 8.7-10.4 mg/dL Total Bilirubin < 0.2 L 0.2-1.0 mg/dL Aspartate Amino Transferase (AST) 103 H 13-40 U/L Alanine Aminotransferase (ALT) 68 H 7-40 U/L Alkaline Phosphatase 143 H 46-116 U/L Total Protein 6.7 5.7-8.2 g/dL Albumin 4.1 3.2-4.8 g/dL Beta HCG, Quantitative 1.6 1.5-4.2 mIU/mL Urine Color Light-yellow Yellow Urine Clarity Clear Clear Urine pH 6.5 5.0-9.0 Urine Specific [place] 1.026 1.001-1.035 Urine Protein Negative Negative Urine Ketones Negative Negative Urine Blood Negative Negative /uL Urine Nitrite Negative Negative Urine Bilirubin Negative Negative Urine Urobilinogen 2 H Negative mg/dL Urine Leukocyte Esterase Negative Negative /uL Urine RBC 2 0 - 4 /hpf Urine Microscopic WBC < 1 0-5 /HPF Urine Squamous Epithelial Cells Few <5 /hpf Urine Bacteria None seen None Seen /hpf Urine Glucose Normal Normal mg/dL Time of 1ST Reevaluation: 16:00 Reevaluation 1ST: Unchanged Patient Education/Counseling: Diagnosis, Treatment Family Education/Counseling: No Family Present SEPSIS Sepsis Screen Date sepsis recognized/suspect: Jan 01, 2025 Time Sepsis recognized/suspect: 1424 Recent Procedure: No On Antibiotic Therapy: No Respiratory Rate >20: No Heart Rate >90: Yes Temp<36 C (96.8 F) or >38.3 C: No SBP <90 or MAP <65 mmHG: No New Acute Mental Status Change: No Is the patient on CPAP, BIPAP,: No Physician Orders Urine Bacterial Culture (01/01/25 14:58) Insert Lott Catheter QSHIFT (01/01/25 14:58) Blood Culture (01/01/25 15:16) Ct Ab Pel Wo Con-No Oral Or Iv (01/01/25 17:13) Vital Signs Date Time Temp Pulse Resp B/P (MAP) Pulse Ox O2 Delivery O2 Flow Rate FiO2 01/01/25 14:25 97.1 95 19 147/88 97 97.1 Laboratory Tests Test 01/01/25 15:05 White Blood Count 7.2 10^3/uL (4.4-10.8) Departure 1 Departure Time of Disposition: 17:20 Impression: Primary Impression: Renal stone Disposition: 30 STILL A PATIENT Condition: Stable Critical Care Note Critical Care Time?: No Stability Stability form required: CHAPINCITO Enriquez RESIDENT Jan 01, 2025 17:15
--- NOTE | 2025-01-01 17:53 | DVH ---
EXAM: CT CT AB PEL WO CON-NO ORAL OR IV INDICATION: R flank pain, CVA tenderness, r/o stone TECHNIQUE: Volumetric multidetector CT images of the abdomen and pelvis were obtained without contras t. All CT scans at this facility use dose modulation, iterative reconstruction, and/or weight based d osing when appropriate to reduce radiation dose to as low as reasonably achievable. COMPARISON: CT CT AB PEL WO CON-NO ORAL OR IV on DOS: 10/12/24 FINDINGS: [LOWER CHEST]: The partially visualized lung bases are clear without a pleural effusion. The cardiac size is normal without pericardial effusion. [LIVER]: Normal hepatic size without suspicious focal lesion. [GALLBLADDER AND BILIARY TREE]: Surgically absent. [SPLEEN]: Unremarkable. [PANCREAS]: Unremarkable. [ADRENAL GLANDS]: Unremarkable [KIDNEYS]: No hydronephrosis. No nephroureterolithiasis. No suspicious focal lesion. [BLADDER]: Unremarkable for the degree distention. [REPRODUCTIVE ORGANS]: Unremarkable. [BOWEL/MESENTERY]: Stomach is normal. No CT evidence of bowel obstruction. normal appendix [ASCITES]: Absent [LYMPHADENOPATHY]: No pathologically enlarged lymph nodes by CT size criteria [VASCULATURE]: No aneurysmal dilatation. [ABDOMINAL WALL]: Unremarkable. [MUSCULOSKELETAL]: No acute fracture or aggressive focal osseous lesion. Multifocal degenerative wiley ge of the visualized spine. IMPRESSION: 1. No CT evidence of an acute abdominal/pelvic process. 2. No hydronephrosis or nephroureterolithiasis.
[2025-01-01 21:09] LABS: Lipase 38.0 U/L (12-53)
[2025-01-01 21:10] LABS: Magnesium 2.2 mg/dL (1.6-2.6)
[2025-01-01 21:21] LABS: INR 0.89 (0.9-1.15); Partial Thromboplastin Time 24.5 SEC (24.5-34.5); Prothrombin Time 9.5 sec (9.3-11.8)
[2025-01-01 21:28] LABS: Cholesterol 242.0 mg/dL (< 200); HDL Cholesterol 59.0 mg/dL (40-59); Triglycerides 232.0 mg/dL (< 150)
--- NOTE | 2025-01-01 22:29 | DVHHPRES ---
History of Present Illness Resident Creating Document: [place] RESIDENT History of Present Illness This is a 49-year-old female without significant past medical history, presented to the ER with chief complain of flank pain. The pain is located in the right flank, started in September. Since last 1 week, she reports worsening of symptoms and describes the pain as burning, intermittent, 10/10, relieved with cold packs, radiating to the back on right side. She reports associated difficulty in urination, with reduced stream. She has also noticed blood on toilet paper after urination. She has been treated twice this year for UTI with ciprofloxacin in September and nitrofurantoin in November. She also complains of some heartburn, which is present intermittently. PMHx: No significant past medical history. Postmenopausal PSHx: Cholecystectomy, tubal ligation Family history: Stomach cancer in father and aunt. Mother with diabetes, hypertension, CKD on dialysis Social history: Smokes 1 pack every 3 days since the last 20 years, marijuana use (last used night before the ER visit). Lives in home with family. Full code Home medication: None Allergic history: Breese- reported itching, wheeze, shortness of breaths Patient was examined at bedside today. She continues to complain of excruciating flank pain. Past Surgical History: Cholecystectomy, Tubal Ligation Smoke: <1 pack per day ALCOHOL: none Drugs: Marijuana Lives: with Family Review of Systems Constitutional: Yes: Chills Gastrointestinal: Other (Right flank pain, radiating to the back) Genitourinary: Other (Reduced stream) Allergies: Coded Allergies: Hydrocodone (Verified Allergy, Unknown, 04/06/23) PER PT "A LITTLE ITCHY" Medications Current Medications Medications Dose Ordered Sig/Chaz Route Start Time Stop Time Status Last Admin Dose Admin Sodium Chloride 1,000 ml @ 120 mls/hr Q8H20M IV 01/01/25 22:15 Ondansetron HCl 4 mg Q4HP PRN IV 01/01/25 22:15 Morphine Sulfate 2 mg Q4HPRN PRN IV 01/01/25 22:15 Enoxaparin Sodium 40 mg DAILY SC 01/01/25 22:15 Oxybutynin Chloride 5 mg Q12HR PO 01/02/25 10:00 UNV Ceftriaxone Sodium 50 ml @ 100 mls/hr DAILY@09 IV 01/02/25 09:00 UNV Ergocalciferol 50,000 unit Q7D PO 01/01/25 22:15 UNV Exam Vital Signs Vital Signs Date Time Temp Pulse Resp B/P (MAP) Pulse Ox O2 Delivery O2 Flow Rate FiO2 01/01/25 14:25 97.1 95 19 147/88 97 97.1 Exam General: Patient alert and oriented in person, place and time. Patient following commands. HEENT: Bilateral conjunctival injection. Normocephalic, atraumatic, moist mucous membranes Respiratory/pulmonary: Clear lungs bilaterally, vesicular murmurs present in almost all lung matias, no associated crackles or wheezes. Cardiovascular: Normal heart sounds S1 and S2 with no associated murmurs Abdomen: Right flank and upper quadrant tenderness on mild palpation. No guarding or rigidity. Normal bowel sounds Extremities: Grade 2 bilateral pitting edema Peripheral Pulses: 3+ Radial (R). 3+ Radial (L). 3+ Dorsalis pedis (R). 3+ Dorsalis pedis(L) Skin: No rashes or pruritus, there is no sacral edema present at this time. Neurological: Intact cranial nerves with no focal neurologic deficits Labs/Xrays Labs Test 01/01/25 20:40 01/01/25 15:05 01/01/25 14:58 Range/Units Prothrombin Time 9.5 9.3-11.8 sec Prothrombin Time INR 0.89 L 0.9-1.15 Activated Partial Thromboplast Time 24.5 24.5-34.5 SEC Lactic Acid Level 0.9 0.4-2.0 mmol/L Phosphorus Level 3.7 2.4-5.1 mg/dL Magnesium Level 2.2 1.6-2.6 mg/dL C-Reactive Protein High Sensitivity 1.02 H <1.0 mg/dL Triglycerides Level 232 H < 150 mg/dL Cholesterol Level 242 H < 200 mg/dL LDL Cholesterol 174 H < 100 mg/dL HDL Cholesterol 59 40-59 mg/dL Lipase 38 12-53 U/L Vitamin B12 Level 482 211-911 pg/mL Vitamin D 25-Hydroxy 18.4 L 30.0-100 ng/mL Thyroid Stimulating Hormone (TSH) 3.37 0.55-4.78 uIU/mL White Blood Count 7.2 4.4-10.8 10^3/uL Red Blood Count 4.94 4.0-5.20 10^6/uL Hemoglobin 15.6 12.2-16.2 g/dL Hematocrit 45.0 36.0-46.0 % Mean Corpuscular Volume 91.2 80.0-100.0 fL Mean Corpuscular Hemoglobin 31.6 28.0-32.0 pg Mean Corpuscular Hemoglobin Concent 34.7 32.0-36.0 g/dL Red Cell Distribution Width 13.2 11.8-14.3 % Platelet Count 291 140-450 10^3/uL Mean Platelet Volume 7.3 6.9-10.8 fL Neutrophils (%) (Auto) 60.6 37.0-80.0 % Lymphocytes (%) (Auto) 31.9 10.0-50.0 % Monocytes (%) (Auto) 6.0 0.0-12.0 % Eosinophils (%) (Auto) 1.1 0.0-7.0 % Basophils (%) (Auto) 0.4 0.0-2.0 % Neutrophils # (Auto) 4.3 1.6-8.6 10 ^3/uL Lymphocytes # (Auto) 2.3 0.4-5.4 10 ^3/uL Monocytes # (Auto) 0.4 0-1.3 10 ^3/uL Eosinophils # (Auto) 0.1 0-0.8 10 ^3/uL Basophils # (Auto) 0 0-0.2 10 ^3/uL Nucleated Red Blood Cells 0.0 % Sodium Level 140 136-145 mmol/L Potassium Level 4.0 3.5-5.1 mmol/L Chloride Level 106 98-107 mmol/L Carbon Dioxide Level 27 20-31 mmol/L Anion Gap 7 5-15 Blood Urea Nitrogen 10 9-23 mg/dL Creatinine 0.84 0.550-1.02 mg/dL Glomerular Filtration Rate Calc 85 >90 mL/min BUN/Creatinine Ratio 11.9 10.0-20.0 Serum Glucose 91 74-106 mg/dL Hemoglobin A1c 5.7 <5.7 % A1C Calcium Level 8.6 L 8.7-10.4 mg/dL Total Bilirubin < 0.2 L 0.2-1.0 mg/dL Aspartate Amino Transferase (AST) 103 H 13-40 U/L Alanine Aminotransferase (ALT) 68 H 7-40 U/L Alkaline Phosphatase 143 H 46-116 U/L Total Protein 6.7 5.7-8.2 g/dL Albumin 4.1 3.2-4.8 g/dL Beta HCG, Quantitative 1.6 1.5-4.2 mIU/mL Urine Color Light-yellow Yellow Urine Clarity Clear Clear Urine pH 6.5 5.0-9.0 Urine Specific Frohna 1.026 1.001-1.035 Urine Protein Negative Negative Urine Ketones Negative Negative Urine Blood Negative Negative /uL Urine Nitrite Negative Negative Urine Bilirubin Negative Negative Urine Urobilinogen 2 H Negative mg/dL Urine Leukocyte Esterase Negative Negative /uL Urine RBC 2 0 - 4 /hpf Urine Microscopic WBC < 1 0-5 /HPF Urine Squamous Epithelial Cells Few <5 /hpf Urine Bacteria None seen None Seen /hpf Urine Glucose Normal Normal mg/dL SEPSIS Sepsis Screen Date sepsis recognized/suspect: Jan 01, 2025 Time Sepsis recognized/suspect: 1424 Recent Procedure: No On Antibiotic Therapy: No Respiratory Rate >20: No Heart Rate >90: Yes Temp<36 C (96.8 F) or >38.3 C: No SBP <90 or MAP <65 mmHG: No New Acute Mental Status Change: No Is the patient on CPAP, BIPAP,: No Physician Orders Urine Bacterial Culture (01/01/25 14:58) Insert Lott Catheter QSHIFT (01/01/25 14:58) Blood Culture (01/01/25 15:16) Ct Ab Pel Wo Con-No Oral Or Iv (01/01/25 17:13) Complete Blood Count (01/02/25 04:00) Drug Screen (01/01/25 20:15) Basic Metabolic Panel (01/02/25 04:00) Admit (01/01/25 22:05) Allergies (01/01/25 22:05) Code Status (01/01/25 22:05) Sodium Chloride 0.9% (01/01/25 22:15) Ondansetron Hcl (Zofran) (01/01/25 22:15) Npo (Nothing By Mouth) Diet (01/02/25 Breakfast) Condition: Serious (01/01/25 22:05) Morphine Sulfate Injection (01/01/25 22:15) Enoxaparin Sodium (Lovenox) (01/01/25 22:15) Stat Ekg For Chest Pain (01/01/25 22:05) Notify Of Changes From Base (01/01/25 22:05) Oxybutynin Chloride Tablet (Ditropan Tab (01/01/25 22:15) Oxybutynin Chloride Tablet (Ditropan Tab (01/02/25 10:00) Ceftriaxone 1gm/50ml (Rocephin) (01/02/25 09:00) Ceftriaxone 1gm/50ml (Rocephin) (01/01/25 22:15) Kidney (01/01/25 22:10) Acute Hepatitis Panel (01/01/25 22:10) Hiv 1&2 Antibody (01/01/25 22:10) Treponema Pallidum Antibody (01/01/25 22:10) Chlamydia/Gc Amplification (01/01/25 22:10) Echo 2d Mode Cardiac Dop (01/01/25 22:10) Bilat Lower Dvt (01/01/25 22:10) Bladder Scan (01/01/25 ) Ergocalciferol (Vitamin D 50,000 Unit) (01/01/25 22:15) Blood Alcohol (01/01/25 22:25) Laboratory Tests Test 01/01/25 15:05 01/01/25 20:40 White Blood Count 7.2 10^3/uL (4.4-10.8) Lactic Acid Level 0.9 mmol/L (0.4-2.0) Assessment/Plan Assessment/Plan Complicated UTI with hydronephrosis U/S done with PCP revealed hydronephrosis, completed nitrofurantoin course in November Completed abdomen and pelvis CT which did not show any acute findings in abdomen, and posterior kidney ultrasound which was within normal limits Blood culture, bacterial culture ordered IV ceftriaxone 1 g daily IV maintenance fluid Pain management with morphine Obstructive uropathy Bladder scan ordered Oxybutynin 5 mg twice daily Transaminitis Acute hepatitis panel ordered Rule out DVT Probable acute on newly diagnosed Congestive Heart failure Doppler ultrasound ordered Echocardiogram ordered UDS is positive for methamphetamine, bilateral lower limb swelling Indicated furosemide 20 mg IV bid Polysubstance abuse History of marijuana use Drug screen positive for cannabinoids and amphetamines Obesity Hypertriglyceridemia Hypercholesteremia Counseled on lifestyle and diet DIET: NPO DVT PROPHYLAXIS: Lovenox CODE STATUS: Goals of care discussed with patient at bedside for more than 35 minutes. Full code DISPOSITION: Med/surge Patient's status and plan discussed with the patient. Case discussed with Dr. Gloria. Plan discussed with: Patient (Nurses), Other (Nurses) My Orders Orders - [facility] [place] RESIDENT Procedure Category Date Status Time Complete Blood Count LAB 01/02/25 Verified 04:00 Drug Screen LAB 01/01/25 In Process 20:15 Basic Metabolic Panel LAB 01/02/25 Verified 04:00 Admit ADMIT 01/01/25 Transmitted 22:05 Allergies SANTIAGO 01/01/25 In Process 22:05 Code Status CODE 01/01/25 Transmitted 22:05 Sodium Chloride 0.9% PHA 01/01/25 In Process 22:15 Ondansetron Hcl PHA 01/01/25 In Process (Zofran) 22:15 Npo (Nothing By DIET 01/02/25 Transmitted Mouth) Diet Breakfast Condition: Serious SANTIAGO 01/01/25 In Process 22:05 Morphine Sulfate PHA 01/01/25 In Process Injection 22:15 Enoxaparin Sodium PHA 01/01/25 In Process (Lovenox) 22:15 Stat Ekg For Chest SANTIAGO 01/01/25 In Process Pain 22:05 Notify Md Of Changes SANTIAGO 01/01/25 In Process From Base 22:05 Oxybutynin Chloride PHA 01/01/25 Logged Tablet (Ditropan Tab 22:15 Oxybutynin Chloride PHA 01/02/25 Logged Tablet (Ditropan Tab 10:00 Ceftriaxone 1gm/50ml PHA 01/02/25 Logged (Rocephin) 09:00 Ceftriaxone 1gm/50ml PHA 01/01/25 Logged (Rocephin) 22:15 Kidney US 01/01/25 Logged 22:10 Acute Hepatitis Panel LAB 01/01/25 Logged 22:10 Hiv 1&2 Antibody LAB 01/01/25 Logged 22:10 Treponema Pallidum LAB 01/01/25 Logged Antibody 22:10 Chlamydia/Gc LAB 01/01/25 Logged Amplification 22:10 Echo 2d Mode Cardiac US 01/01/25 Logged DOP 22:10 Bilat Lower Dvt US 01/01/25 Logged 22:10 Bladder Scan ED NURSING 01/01/25 Transmitted Ergocalciferol PHA 01/01/25 Logged (Vitamin D 50,000 22:15 Blood Alcohol LAB 01/01/25 Logged 22:25 Date of Service: Jan 01, 2025 Billing Provider: ALEXIA GLORIA MD Common Visit Codes: [id number] INP/OBS CARE (HIGH) Secondary Visit Codes: [id number] CARE PLAN 30 MINUTES WE[facility] G[place] RESIDENT Jan 01, 2025 22:29 JINA NEWELL RESIDENT Jan 02, 2025 06:05
[2025-01-01 22:33] LABS: Cannabinoid Screen, Urine Pos (NEGATIVE)
[2025-01-01 22:34] LABS: Amphetamine Screen, Urine Pos (NEGATIVE); Barbiturate Scree,Urine Neg (NEGATIVE); Benzodiazephine Screen, Urine Neg (NEGATIVE); Opiate Scree,Urine Neg (NEGATIVE); Phencyclidine Screen, Urine Neg (NEGATIVE)
[2025-01-01 22:35] LABS: Cocaine Screen, Urine Neg (NEGATIVE)
--- NOTE | 2025-01-01 23:00 | DVH ---
INDICATION: Obstructive uropathy TECHNIQUE: Multiple real-time sonographic images of the kidneys and bladder were obtained. COMPARISON: US RENAL AND BLADDER on DOS: 12/28/24 FINDINGS: The right kidney measures 9.5 cm in length, which is normal in size. There is normal echoge nicity of the right kidney. No hydronephrosis. The left kidney measures 9.4 cm in length, which is normal in size. There is normal echogenicity of t he left kidney. No hydronephrosis. No intraluminal mass is seen in the bladder. Prior to voiding the bladder volume measures 280.70 cc, with full emptying postvoid. IMPRESSION: 1. No acute sonographic abnormality identified.
--- NOTE | 2025-01-01 23:39 | DVH ---
Bilateral lower extremity venous duplex Clinical History: Bilateral lower limb swelling Comparison: VAS VENOUS LOWER EXTREM BILAT (DVT) on DOS: 12/15/24, VAS ARTERIAL LOWER EXTREM BILAT on DO S: 12/15/24 Technique: Duplex doppler evaluation of the deep venous systems of both lower extremities from the common femora l veins to the popliteal veins including color doppler and spectral/pulsed waveform analysis was perf ormed. Findings: RIGHT SIDE: The common femoral vein demonstrates appropriate compressibility and waveform variability. There is compressibility/patency of the great saphenous vein at the proximal thigh. The femoral vein demonstrates appropriate compressibility and waveform variability. The deep femoral vein demonstrates appropriate compressibility and waveform variability. The popliteal vein demonstrates appropriate compressibility and waveform variability. There is normal compressibility at the tibioperoneal trunk. LEFT SIDE: The common femoral vein demonstrates appropriate compressibility and waveform variability. There is compressibility/patency of the great saphenous vein at the proximal thigh. The femoral vein demonstrates appropriate compressibility and waveform variability. The deep femoral vein demonstrates appropriate compressibility and waveform variability. The popliteal vein demonstrates appropriate compressibility and waveform variability. There is normal compressibility at the tibioperoneal trunk. Impression: 1. No right or left femoropopliteal venous thrombosis.
[2025-01-02] VITALS (7 sets, daily range): BP systolic 108–139; BP diastolic 74–92; PULSE 66–82; RESP 12–20; TEMP 97.7–98.6; O2SAT 95–98
[2025-01-02] MEDS: SODIUM CHLORIDE 0.9% 1,000 ML IV ONE (00:40)
[2025-01-02] MEDS: ENOXAPARIN SOD 40 MG/0.4 ML SYRINGE SC SCH (00:43)
[2025-01-02] MEDS: MORPHINE SULFATE INJ 2 MG/ml SYRG IV PRN ×2 (00:43→20:38)
[2025-01-02] MEDS: OXYBUTYNIN CHL 5 MG TAB PO ONE (00:44)
[2025-01-02] MEDS: SODIUM CHLORIDE 0.9% 1,000 ML IV SCH (03:05)
[2025-01-02] MEDS: FUROSEMIDE 20 MG/2 ML VIAL IV ONE (06:44)
--- NOTE | 2025-01-02 06:57 | DVH ---
CHEST RADIOGRAPH Indication: CHF Technique: Single frontal view of the chest was obtained COMPARISON: XY CHEST PORTABLE on DOS: 04/02/23, CHEST PORTABLE on DOS: 10/20/21, CXRP on DOS: 10/20/21 FINDINGS: Lines and Tubes: None Lungs: Clear Pleura: No effusion. No pneumothorax. Cardiomediastinal contours: Unremarkable Bones: Unremarkable IMPRESSION: 1. No acute disease.
[2025-01-02 07:04] LABS: Chloride 106 mmol/L (98-107); Potassium 3.9 mmol/L (3.5-5.1); Sodium 139 mmol/L (136-145)
[2025-01-02 07:05] LABS: Anion Gap 7 (5-15); Carbon Dioxide 26 mmol/L (20-31)
[2025-01-02 07:10] LABS: BUN/Creatinine Ratio 11.0 (10.0-20.0); Glucose 98 mg/dL (74-106); Hematocrit 41.6 % (36.0-46.0); Hemoglobin 14.4 g/dL (12.2-16.2); Mean Corpuscular Hemoglobin 31.4 pg (28.0-32.0); Mean Corpuscular Volume 90.7 fL (80.0-100.0); Nucleated Red Blood Cells % 0.0 %
[2025-01-02 07:13] LABS: Blood Urea Nitrogen 8 mg/dL (9-23); Calcium 8.3 mg/dL (8.7-10.4)
[2025-01-02] MEDS: ONDANSETRON HCL 4 MG/2 ML VIAL IV PRN (07:47)
[2025-01-02] MEDS ORDERED: ERGOCALCIFEROL 50,000 UNIT(1.25MG) CAP PO SCH (09:00)
[2025-01-02] MEDS ORDERED: OXYBUTYNIN CHL 5 MG TAB PO SCH (10:00)
--- NOTE | 2025-01-02 11:15 | DVH ---
INDICATION: transaminitis TECHNIQUE: Multiple real-time sonographic images were obtained of the liver and gallbladder. COMPARISON: CT 01/01/2025 US KIDNEY on DOS: 01/01/25, MRI MRCP MRI on DOS: 04/04/23, US GALLBLADDER on DOS: 04/02/23 FINDINGS: The liver demonstrates homogenous echotexture without focal mass lesions. The liver measure s 14 cm. There is no intrahepatic or extrahepatic ductal dilatation. The common duct measures 9 mm. Gallbladder is not well visualized. Small cystic structure versus bowel loop in the gallbladder fossa measuring 3.1 cm. The pancreas is not well visualized due to overlying bowel gas. IMPRESSION: Status post cholecystectomy. Small cystic structure versus bowel loop in the gallbladder fossa measur ing 3.1 cm. This was not seen on prior CT from 01/01/2025.
[2025-01-02] MEDS ORDERED: ESCI1TAB36 PO (12:32)
--- NOTE | 2025-01-02 14:49 | DVH ---
PROCEDURE: MRI MRCP MRI Indication: abd pain COMPARISON: Abdominal ultrasound from 01/02/2025 TECHNIQUE: Multiplanar multisequence images of the brain are obtained. FINDINGS: The kidneys demonstrate no hydronephrosis. Spleen, pancreas unremarkable. Cholecystectomy. Common danielle e duct measures 7 mm in diameter. No evidence for choledocholithiasis. Mild dilatation intrahepatic ducts up to 5 mm. Small hiatal hernia. Stomach partially distended. Colonic diverticular disease. Right ovarian cyst measuring 13 mm. IMPRESSION: Cholecystectomy. Mild dilatation of the common bile duct and intrahepatic ducts with measurements as above which could be secondary to reservoir effect. Correlate clinically to exclude obstructive biliary / ampullary e tiology. Small hiatal hernia. 13 mm right ovarian cyst.
[2025-01-02] MEDS: CYANOCOBALAMIN (B-12) 1000 MCG/1 ML VIAL IM ONE (16:05)
[2025-01-02] MEDS: ERGOCALCIFEROL 50,000 UNIT(1.25MG) CAP PO ONE (16:05)
[2025-01-02] MEDS ORDERED: FUROSEMIDE 20 MG/2 ML VIAL IV SCH (18:00)
[2025-01-02] MEDS ORDERED: KETOROLAC TROMETH 30 MG/ML 1ML VIAL IV PRN (18:30)
[2025-01-02] MEDS ORDERED: IBUPROFEN 400 MG TAB PO PRN (18:30)
--- NOTE | 2025-01-02 18:40 | DVHSR ---
APPROVED REPORT EXAM: Two-dimensional and M-mode echocardiogram with Doppler and color Doppler. Blood Pressure: 135/84 mmHg INDICATION Bilateral lower limb swelling RISK FACTORS Height: 5'5", Weight: 186 DIMENSIONS LVDd4.6 (3.8-5.7cm)LA (2D)3.6 (1.9-4.0cm)Aortic Root3.3 (2.0-3.7cm) LVDs3.2 (2.5-4.0cm)LA (MM) (1.9-4.0cm)Aortic Cusp Exc1.5 (1.5-2.0cm) EF (%) 60.0 (55-70%)Rt. Atrium3.5 (1.9-4.0cm)Asc. Aorta cm IVSd1.2 (0.7-1.1cm)RV (D)3.5 (1.8-2.4cm) PWd1.0 (0.7-1.1cm) Mitral Valve MitralMitral Stenosis E wave0.93m/sMV Mean GR.mmHg A wave0.51m/sMV Peak GR.mmHg E/A ratio1.82D MVAcm2 DECEL [id number] 1/2 Timems Aortic Valve Aortic ValveAortic Stenosis V10.87m/Roxie Mean GR.4mmHg V21.26m/Roxie Peak GR.6mmHg LVOT Diameter1.9 (1.8-2.4cm)Doppler AVA1.96cm2 Pulmonic Valve V20.96m/s Conclusion LV EF IS 65% AND IS NORMAL NORMAL VALVES NORMAL RV FUNCTION NO EFFUSION
[2025-01-02] MEDS: PANTOPRAZOLE 40 MG TAB PO ONE (19:06)
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
[2025-01-02] MEDS ORDERED: HYDROcodone-ACET 5/325MG TAB PO PRN (20:45)
[2025-01-03 00:45] VITALS: BP 124/88; PULSE 72; RESP 18; TEMP 98.4; O2SAT 96
[2025-01-03 04:59] VITALS: BP 121/80; PULSE 74; RESP 18; TEMP 98.1; O2SAT 99
[2025-01-03] MEDS: PANTOPRAZOLE 40 MG TAB PO SCH (06:24)
[2025-01-03 07:38] LABS: Hematocrit 43.3 % (36.0-46.0); Hemoglobin 14.8 g/dL (12.2-16.2); Mean Corpuscular Hemoglobin 31.0 pg (28.0-32.0); Mean Corpuscular Volume 90.7 fL (80.0-100.0); Nucleated Red Blood Cells % 0.1 %
[2025-01-03 07:56] LABS: Albumin 3.8 g/dL (3.2-4.8); Anion Gap 8 (5-15); BUN/Creatinine Ratio 11.9 (10.0-20.0); Blood Urea Nitrogen 10 mg/dL (9-23); Calcium 8.8 mg/dL (8.7-10.4); Carbon Dioxide 26 mmol/L (20-31); Chloride 106 mmol/L (98-107); Glucose 103 mg/dL (74-106); Potassium 4.1 mmol/L (3.5-5.1); Sodium 140 mmol/L (136-145); Total Protein 6.4 g/dL (5.7-8.2)
[2025-01-03 08:03] LABS: Alanine Aminotransferase 133 U/L (7-40); Alkaline Phosphatase 175 U/L (46-116); Bilirubin, Total 0.3 mg/dL (0.2-1.0)
[2025-01-03 09:00] VITALS: BP 110/74; PULSE 81; RESP 18; TEMP 98.2; O2SAT 97
[2025-01-03 11:29] LABS: Hepatitis B Surface Antigen Negative (Negative); Hepatitis C Antibody Negative (Negative)
[2025-01-03 12:36] VITALS: BP 118/83; PULSE 77; RESP 18; TEMP 98.1; O2SAT 97
[2025-01-03] MEDS ORDERED: PANT40TA2 PO (13:55)
[2025-01-03] MEDS ORDERED: SUCR1SUS5 PO (13:55)
[2025-01-03] MEDS ORDERED: ESCI1TAB36 PO (13:55)
[2025-01-03] MEDS ORDERED: ERGO1CAP23 PO (14:24)
--- NOTE | 2025-01-03 14:41 | DVHINCON2 ---
GI Consult Consult Note GI consult note Date of Consultation: 01/03/2025 Chief Complaint: Abdominal pain Referring Physician: Dr. Romo H&P: 49-year-old female admitted with complains of right flank/right upper quadrant pain for one-week, described as burning in sensation. Patient also has feeling of bloating after eating. Patient has been having these symptoms on and off since September 2024. Patient is status post cholecystectomy in March 2024, and has not followed up with a surgeon since surgery. Complains of occasional nausea denies vomiting no hematemesis. Last bowel movement two days ago, has symptoms of diarrhea on and off. Patient denies alcohol use no use of Tylenol either. Patient is positive for amphetamine and cannabis Past Medical History: Past Surgical History: Cholecystectomy, tubal ligation Social History: + smoking, denies drinking ETOH Positive amphetamine positive cannabis Family History: Noncontributory Review of Systems: Constitutional: no fever, chill, weight loss HEENT: no eye pain, no hearing loss, no oral lesion, no scleral icterus Heart: no chest pain, no chest pressure Lung: no cough, no dyspnea with exertion Abdomen: see HPI : Difficulty urinating, positive hematuria Physical exam: General: NAD, AAOX3 Chest: lung matias clear to auscultation Heart: RRR, no murmur Abdomen: Positive [id number] right upper quadrant tenderness to palpation, +BS Labs: Test 01/02/25 06:33 Range/Units Serum Glucose 98 74-106 mg/dL Microbiology Date/Time Source Procedure Growth Status 01/01/25 15:20 Blood Blood Culture - Preliminary NO GROWTH AFTER 24 HOURS OF INCUBATION. Resulted Imaging: CT abdomen pelvis IMPRESSION: 1. No CT evidence of an acute abdominal/pelvic process. 2. No hydronephrosis or nephroureterolithiasis. Liver ultrasound IMPRESSION: Status post cholecystectomy. Small cystic structure versus bowel loop in the gallbladder fossa measuring 3.1 cm. This was not seen on prior CT from 01/01/2025. MRCP Cholecystectomy. Mild dilatation of the common bile duct and intrahepatic ducts with measurements as above which could be secondary to reservoir effect. Correlate clinically to exclude obstructive biliary / ampullary etiology. Small hiatal hernia. 13 mm right ovarian cyst. Assessment: Abdominal pain Transaminitis Status post cholecystectomy Abnormal findings on liver ultrasound Polysubstance abuse Plan: Discussed with Dr. [place] ALKA, ferritin Monitor labs in a.m. Recommend surgical consult for abnormal findings of gallbladder fossa Possible EGD to be considered if symptoms of abdominal pain persist We will continue to monitor patient Thank you for this consult Date of Service: Jan 03, 2025 Billing Provider: LAURA CERRATO Common Visit Codes: CONSULT ONLY Consultation Codes: [id number] CONSULT <60MIN LAURA CERRATO Jan 03, 2025 14:41
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
[2025-01-04 05:08] LABS: Chlamydia Trachomatis, NAA Negative (Negative); Neisseria gonorrhoeae, NAA Negative (Negative)
[2025-01-04 09:07] LABS: Anti-Centromere B Antibody <0.2 AI (0.0-0.9); Anti-Jo-1 Antibody <0.2 AI (0.0-0.9); Anti-Nuclear Antibody Direct Negative (Negative); Anti-dsDNA Antibody <1 IU/mL (0-9); Antichromatin Antibody <0.2 AI (0.0-0.9); Antiscleroderma-70 Antibody <0.2 AI (0.0-0.9); Sjogren's Anti-SS-A Antibody <0.2 AI (0.0-0.9); Sjogren's Anti-SS-B Antibody <0.2 AI (0.0-0.9)
== END 2025-01-03 16:34 | disposition home or self-care (01) | DRG 241 ==
LOC: ER 14:24 → OVERFLOW 22:05 → WEST WING 01-02 22:38
PROVIDERS: ADMIT Internal Medicine Geriatric Medicine; ATTEND Internal Medicine Geriatric Medicine
DX: K29.70 Gastritis, unspecified, without bleeding (principal); K83.1 Obstruction of bile duct; K83.8 Other specified diseases of biliary tract; N13.6 Pyonephrosis; E66.9 Obesity, unspecified; K44.9 Diaphragmatic hernia without obstruction or gangrene; N13.9 Obstructive and reflux uropathy, unspecified; F17.210 Nicotine dependence, cigarettes, uncomplicated; R74.01 Elevation of levels of liver transaminase levels; F12.10 Cannabis abuse, uncomplicated; F15.10 Other stimulant abuse, uncomplicated; E78.1 Pure hyperglyceridemia; E78.00 Pure hypercholesterolemia, unspecified; N83.201 Unspecified ovarian cyst, right side; Z90.49 Acquired absence of other specified parts of digestive tract; Z88.5 Allergy status to narcotic agent; Z82.49 Family history of ischemic heart disease and other diseases of the circulatory system; Z80.0 Family history of malignant neoplasm of digestive organs; Z83.3 Family history of diabetes mellitus; Z84.1 Family history of disorders of kidney and ureter; Z98.51 Tubal ligation status; Z68.31 Body mass index [BMI] 31.0-31.9, adult
CPT/HCPCS: 36415; 71045; 74176; 74181; 76705; 76775; 80048; 80053; 80061; 80074; 80307; 80320; 81001; 82306; 82607; 82728; 83036; 83516; 83605; 83690; 83735; 83880; 84100; 84443; 84702; 85025; 85610; 85730; 86038; 86141; 86225; 86235; 86703; 86780; 87040; 87086; 93306; 93970; 97163; G0378; J2405